=== PATIENT | male | born 1985 | race Caucasian/White ===

== ENCOUNTER 2023-02-13 14:09 | Emergency (ER) | payer BC, SELFPAY ==
--- NOTE | ~2023-02-13 | XR_ITS ---
XR knee RT min 4V DATE: 02/13/2023 15:29 INDICATION: Fall down stairs. Right knee injury, pain TECHNIQUE: 4 views including crosstable lateral COMPARISON: None FINDINGS: No fracture or dislocation or joint effusion. No periosteal reaction or bone destruction. J oint spaces are preserved. No radiopaque interarticular loose body or chondral calcinosis. IMPRESSION: Negative Reviewed, dictated and finalized at location A. IMPRESSION: Negative
--- NOTE | ~2023-02-13 | XR_ITS ---
XR chest 1V portable DATE: 02/13/2023 15:29 INDICATION: Fall downstairs TECHNIQUE: Portable AP views on 02/13/2023 at 1503 and 1504 hours COMPARISON: 03/06/2012 portable AP chest FINDINGS: Normal heart size. No hilar or mediastinal enlargement. No pulmonary infiltrate or consolid ation, pleural effusion or pulmonary vascular congestion or pneumothorax. IMPRESSION: No active cardiopulmonary disease Reviewed, dictated and finalized at location A.
--- NOTE | ~2023-02-13 | XR_ITS ---
XR elbow RT min 3V DATE: 02/13/2023 15:29 INDICATION: Possible dislocation TECHNIQUE: 3 views COMPARISON: None FINDINGS: There are least 2 of the views are not standard positioning, resulting in suboptimal examin ation. Obvious fracture or dislocation is not detected. If standard views are not possible, then CT o f the right elbow is recommended for more definitive evaluation. IMPRESSION: Limited nondiagnostic examination. Standard positioning is recommended. If not possible, consider CT elbow examination Reviewed, dictated and finalized at location A. IMPRESSION: Limited nondiagnostic examination. Standard positioning is recommen ded. If not possible, consider CT elbow examination
[2023-02-13 14:13] VITALS: PULSE 92; RESP 10
[2023-02-13 14:15] VITALS: BP 139/73; PULSE 93; RESP 12; O2SAT 100
[2023-02-13 14:18] VITALS: BP 137/73; PULSE 92; RESP 14; TEMP 36.9; O2SAT 98
[2023-02-13 15:17] LABS: Basophils Percent Auto 0.4 % (0.2-1.2); Eosinophils Absolute Auto 0.3 K/mm3 (0-0.3); Eosinophils Percent Auto 3.6 % (0-4.4); Hematocrit 42.6 % (42.0-52.0); Hemoglobin 14.2 g/dL (14.0-18.0); Immature Granulocyte Absolute 0.02 K/mm3 (0.00-0.031); Immature Granulocyte Percent A 0.3 % (0-0.5); Lymphocytes Absolute Auto 2.15 K/mm3 (0.9-3.2); Lymphocytes Percent Auto 27.9 % (18.3-44.2); Mean Corpuscular HGB Conc 33.3 g/dl (32-36); Mean Corpuscular Hemoglobin 30.7 pg (26-34); Mean Platelet Volume 10.6 fl (7.4-10.4); Monocytes Absolute Auto 0.8 K/mm3 (0.1-0.6); Monocytes Percent Auto 10.3 % (2.6-8.5); Neutrophils Absolute Auto 4.4 K/mm3 (1.3-6.7); Neutrophils Percent Auto 57.5 % (45.5-73.1); Platelet Count Result 253 k/mm3 (150-375); Red Blood Count 4.63 M/mm3 (4.6-6.20); Red Cell Distribution Width 13.2 % (11.5-14.5); White Blood Count 7.7 K/mm3 (4.5-10.0)
[2023-02-13 15:21] LABS: Base Excess ABG 3.7 mEq/l (+/-2.0); Carboxyhemoglobin 3.4 % THb (0-2.0); Device ROOM AIR; Fractional Inspired Oxygen 21 %; HCO3 ABG 29.9 mEq/l (22.0-26.0); Methemoglobin ABG 0.2 %THb (0-1.5); Modified Allen's Test Unable to perform; Oxyhemoglobin 93.2 % THb (90.0-100.0); PCO2 ABG 51.3 mmHg (35.0-45.0); PO2 ABG 94.2 mmHg (80.0-100.0); PO2 FiO2 Ratio Arterial Blood 4.49 %; Reduced Hemoglobin 3.2 %THb (0-5.0); Site Drawn LEFT BRACHIAL; Total Hemoglobin 14.4 g/dL (12.0-18.0); pH ABG 7.384 (7.350-7.450)
[2023-02-13 15:33] LABS: Alanine Aminotransferase 23 U/L (6-50); Albumin Level 4.5 g/dL (3.5-5.1); Alkaline Phosphatase 51 U/L (38-126); Anion Gap 7 mmol/L (8-16); Aspartate Amino Transferase 34 U/L (17-59); Bilirubin,Total 0.7 mg/dL (0.2-1.3); Blood Urea Nitrogen 15 mg/dL (9-20); Calcium 8.8 mg/dL (8.4-10.2); Carbon Dioxide 31 mmol/L (22-30); Chloride 100 mmol/L (98-107); Estimated CRCL calculation 105 ml/min; Estimated Glomerular Filt Rate > 60; Glucose 83 mg/dL (65-110); Potassium 4.2 mmol/L (3.4-5.0); Sodium 138 mmol/L (137-145)
[2023-02-13 15:38] LABS: Ethanol < 10 mg/dL (<10)
--- NOTE | 2023-02-13 15:43 | ED.FALL ---
HPI - Fall General Chief Complaint: Fall Stated Complaint: fall, AMS Time Seen by Provider: 02/13/23 14:42 Source: patient and RN notes reviewed Mode of arrival: EMS Limitations: no limitations History of Present Illness HPI Narrative: This is a 37 year old male who presents for evaluation of right elbow injury and lethargy s/p fall. Patient states he tripped and he fell down 12 steps. He reports right elbow pain and right knee pain. HE denies hitting his head, headache, dizziness, nausea or vomiting. EMS reports that patient was lethargic with snoring respirations but patient denies drug use. He denies alcohol use as well. He denies neck pain Review of Systems Review of Systems: All systems reviewed & are unremarkable except as noted in HPI and below Constitutional: Constitutional: Denies weakness Cardiovascular: Cardiovascular: Denies syncope, Denies rapid heart rate, Denies irregular heart rhythm, Denies leg edema and Denies dyspnea Respiratory: Respiratory: Denies chest congestion, Denies hemoptysis, Denies excessive phlegm production and Denies dyspnea Gastrointestinal: Gastrointestinal: Denies abdominal pain, Denies hematochezia, Denies diarrhea and Denies vomiting Genitourinary: Genitourinary: Denies hematuria, Denies dysuria, Denies penile discharge and Denies testicular pain Musculoskeletal: Musculoskeletal: Reports arthralgias, Denies joint swelling, Denies loss of height and Denies muscle weakness Neurologic: Denies syncope, Denies focal weakness and Denies weakness PMFSH Past Medical History Medical History Posttraumatic stress disorder (09/10/12) Social History Social History Smoking status: Current every day smoker Exam Const: General: no acute distress Orientation/consciousness: patient oriented x3 Other: patient slumped over in bed. Woke up when I sat him up HENMT: Head: contusion (left head) Ears: external ears normal Mouth: Yes Normal oral and palatal mucosa present Throat: posterior oropharynx normal and uvula midline Eyes: Conjunctivae: conjunctivae normal Pupils: Equal, round and reactive pupils present EOM: EOMs intact bilaterally Neck: Neck: normal visual inspection Chest: Chest palpation & inspection: normal inspection of the chest Resp: Effort & Inspection: normal respiratory effort Auscultation: clear to auscultation bilaterally Cardio: Rate: regular rate Rhythm: regular rhythm Heart sounds: no murmurs GI: GI Palp: Yes Soft to palpation, No Tenderness to palpation present (GI), No Guarding due to palpation present (GI) and No Rigid due to palpation Auscultation: normal bowel sounds Skin: Wounds: wounds noted (forehead) Neuro: General: patient oriented x3, moves all extremities, no meningeal signs, no focal motor deficits and CN's II-XI intact bilaterally Speech: normal speech Extrem: Other: right arm in elbow splint from EMS. pulses palpable Psych: Mental Status: mental status grossly normal Affect: normal affect Attitude: cooperative Course Reevaluation(s) Reevaluation #1: PAtient is asking to leave AMA. Nursing reports he refused his CT brain . He is alert and oriented x 4. I Discussed risk and benefits of evaluation and risk of leaving. He states he understands and he signed AMA Date: 02/13/23 Time: 15:48 Vital Signs Vital signs: Vital Signs Pulse Rate 92 02/13/23 14:13 Respiratory Rate 10 L 02/13/23 14:13 Temperature 98.4 F 02/13/23 14:18 Pulse Rate 99 02/13/23 15:48 Respiratory Rate 14 02/13/23 15:48 Blood Pressure 133/92 H 02/13/23 15:48 Pulse Oximetry 100 02/13/23 15:48 Oxygen Delivery Room Air 02/13/23 14:18 MDM - Fall Differential Diagnosis Differential diagnosis: Likely concussion with loss of consciousness, concussion without loss of consciousness and other (seizure, elbow dislocation, elbow fracture, josi
[2023-02-13 15:48] VITALS: BP 133/92; PULSE 99; RESP 14; O2SAT 100
--- NOTE | 2023-02-13 15:49 | PC.NURSE ---
Pt. requesting to sign out ama. Pt. is currently awake and AOx4 requesting to leave and does not want to wait for test results or any further testing. Pt. does not want to wait for their x rays to determine any injuries or fractures. Pt. states he feels scared and would rather leave. ERP aware and notified and spoke with patient. Pt. signed out AMA. Pt. ambulatory out of ED with steady gait. Pt. stated he is calling a ride to go home.
== END 2023-02-13 15:51 | disposition left against medical advice (07) ==
PROVIDERS: Emergency Provider General Practice
DX: S59.901A Unspecified injury of right elbow, initial encounter (principal); S09.90XA Unspecified injury of head, initial encounter; W10.9XXA Fall (on) (from) unspecified stairs and steps, initial encounter
CPT/HCPCS: 36415; 36600; 71045; 73080; 73564; 80053; 80307; 82375; 82805; 83050; 83735; 85025; 99284